=== PATIENT | female | born 1995 | race African-American/Black ===

== ENCOUNTER 2023-06-17 08:00 | Outpatient (CLI) | payer BC ==
[2023-06-17 19:18] LABS: BILIRUBIN,URINE NEGATIVE (NEGATIVE); GLUCOSE, URINE (UA) NEGATIVE (NEGATIVE); KETONES,URINE (UA) NEGATIVE (NEGATIVE); LEUKOCYTE ESTERASE, URINE NEGATIVE (NEGATIVE); NITRITE,URINE NEGATIVE (NEGATIVE); OCCULT BLOOD,URINE NEGATIVE (NEGATIVE); PROTEIN,URINE NEGATIVE (NEGATIVE); UROBILINOGEN,URINE 0.2 (NORMAL) E.U./dL (NORMAL)
[2023-06-17 19:27] LABS: CLARITY,URINE CLEAR (CLEAR)
[2023-06-17 19:42] LABS: BACTERIA,URINE None Seen /HPF (None Seen); RBC,URINE 0-5 /HPF (0-5); SQUAMOUS EPITHELIAL CELL,UR FEW Squamous (<= Few); WBC,URINE 0-3 /HPF (0-5)
== END 2023-06-17 23:59 | disposition home or self-care (01) ==
LOC: LAB.WC 08:00
PROVIDERS: ATTEND Obstetrics & Gynecology
DX: Z34.90 Encounter for supervision of normal pregnancy, unspecified, unspecified trimester (principal)
CPT/HCPCS: 81001; 87086

== ENCOUNTER 2023-07-03 07:11 | Outpatient (CLI) | payer BC ==
--- NOTE | 2023-07-03 14:01 | Ultrasound Report ---
PROCEDURE: OB First Trimester INDICATIONS: POSITIVE TEST OUTSIDE/PRIOR DATING DATA: Last menstrual period (LMP): 05/06/2023. LMP-based estimated date of delivery (RENNY): 02/10/2024. First dating scan (date and location): 07/03/2023. Estimated date of delivery (RENNY) from first dating scan: 02/08/2024. TECHNIQUE: Real-time scanning was performed of the fetus and maternal pelvic organs, with image documentation. COMPARISON: None FINDINGS: Intrauterine gestational sac present. Embryo: [place]ajo-rump length measures 2.01 cm corresponding with 8 week 4 day gestation Heart rate: 160 bpm. Other: No perigestational fluid collection. Measurement variability in dating: +/- 4 weeks by LMP, +/- 7 days by mean sac diameter (use before 6 weeks gestation if crown-rump length not able to be measured), +/- 5 days by crown-rump length (6-12 weeks gestation). Maternal organs: Ovaries show a left corpus luteum cyst IMPRESSION: Single live intrauterine corresponds with 8 week 4 day gestation Reviewed by: Brannon Solomon MD on 07/03/2023 12:59 PM AKST Approved by: Brannon Solomon MD on 07/03/2023 12:59 PM AKST Station ID: [id number]
== END 2023-07-03 07:12 | disposition home or self-care (01) ==
LOC: DI 07:11
PROVIDERS: ATTEND Obstetrics & Gynecology
DX: Z34.91 Encounter for supervision of normal pregnancy, unspecified, first trimester (principal)

== ENCOUNTER 2023-07-14 16:59 | Emergency (ER) | payer BC ==
--- NOTE | 2023-07-14 17:15 | ED Physician Documentation ---
PD HPI NVD - Stated complaint Stated Complaint: PREG/PASTOR/VOMIT/SORE THROAT - Chief complaint Chief Complaint: Abd Pain - History obtained from History obtained from: Patient - Additonal information Additional information: This is a 28-year-old female who is approximately 30 weeks who presents with nausea and vomiting that has been present throughout her but over the last several days she really has not been able to tolerate much of any p.o. intake. She also has developed cough, nasal congestion mild sore throat and body aches with particularly strong bilateral leg cramps. She has also had a "Little bit" of fever.She was exposed to her and her toddler daughter who have had URI symptoms in the last week or so as well. No other known sick contacts. She is not having any chest pain no difficulty breathing, no abdominal pain, no dysuria urgency or frequency, no vaginal bleeding. She has had a first trimester OB visit and in fact has follow-up with her OB tomorrow. She does recall that during her last she had issues with nausea and vomiting the first trimester though never required any medication. 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 - Present Medications Home Medications: Ambulatory Orders Medication Instructions Recorded Confirmed Nirmatrelvir/Ritonavir [Paxlovid] 1 kit PO BID #1 kit 07/14/23 Ondansetron Odt [Zofran] 4 mg TL Q6H PRN #10 tablet 07/14/23 Pnv No.95/Ferrous Fum/Folic AC 1 each PO DAILY 07/14/23 07/14/23 [ Tablet] - Allergies Allergies/Adverse Reactions: Allergies Allergy/AdvReac Type Severity Reaction Status Date / Time No Known Drug Allergies Allergy Verified 07/14/23 17:03 - Social History Does the pt smoke?: No Smoking Status: Never smoker Does the pt drink ETOH?: No Does the pt have substance abuse?: No - Immunizations Immunizations are current?: Yes PD ED PE NORMAL - Vitals Vital signs reviewed: Yes - General General: Alert and oriented X 3, No acute distress, Well developed/nourished - HEENT HEENT: Atraumatic, Moist mucous membranes, Pharynx benign - Neck Neck: Supple, no meningeal sign, No adenopathy - Cardiac Cardiac: RRR, No murmur - Respiratory Respiratory: No respiratory distress, Clear bilaterally - Abdomen Abdomen: Normal bowel sounds, Soft, Non tender, Non distended - Derm Derm: Normal color, Warm and dry, No rash Results - Vitals Vitals: Vital Signs - 24 hr 07/14/23 07/14/23 17:04 18:53 Temperature 37.2 C 36.4 C L Heart Rate 105 H 99 Respiratory 18 16 Rate Blood Pressure 123/63 115/70 O2 Saturation 98 100 Oxygen O2 Source Room air - Labs Labs: Laboratory Tests 07/14/23 07/14/23 07/14/23 17:21 17:21 17:40 WBC 8.5 RBC 4.41 Hgb 12.5 Hct 38.0 MCV 86.2 MCH 28.3 MCHC 32.9 RDW 12.0 Plt Count 189 MPV 10.7 Neut # (Auto) 7.8 H Lymph # (Auto) 0.2 L [place] # (Auto) 0.4 Eos # (Auto) 0.0 Baso # (Auto) 0.0 Absolute Nucleated RBC 0.00 Nucleated RBC % 0.0 Sodium 132 L Potassium 3.5 Chloride 101 Carbon Dioxide 22 Anion Gap 9.0 BUN 7 Creatinine 0.5 L Estimated GFR (MDRD) 176 Glucose 96 Calcium 9.4 Total Bilirubin 0.3 AST 11 ALT 12 Alkaline Phosphatase 46 Total Protein 6.8 Albumin 4.3 Globulin 2.5 Albumin/Globulin Ratio 1.7 Lipase < 10 L Urine Color Urine Clarity Urine pH Ur Specific [place] Urine Protein Urine Glucose (UA) Urine Ketones Urine Occult Blood Urine Nitrite Urine Bilirubin Urine Urobilinogen Ur Leukocyte Esterase Ur Microscopic Review Urine Culture Comments Nasal Adenovirus (PCR) NOT DETECTED Nasal B. parapertussis DNA (PCR) NOT DETECTED Nasal Coronavir 229E PCR NOT DETECTED Nasal Coronavir HKU1 PCR NOT DETECTED Nasal Coronavir NL63 PCR NOT DETECTED Nasal Coronavir OC43 PCR NOT DETECTED Nasal Enterovir/Rhinovir PCR NOT DETECTED Nasal Influenza B PCR NOT DETECTED Nasal Influenza A PCR NOT DETECTED Nasal Parainfluen 1 PCR NOT DETECTED Nasal Parainfluen 2 PCR NOT DETECTED Nasal Parainfluen 3 PCR NOT DETECTED Nasal Parainfluen 4 PCR NOT DETECTED Nasal RSV (PCR) NOT DETECTED Nasal B.pertussis DNA PCR NOT DETECTED Nasal C.pneumoniae (PCR) NOT DETECTED Ivan Human Metapneumo PCR NOT DETECTED Nasal M.pneumoniae (PCR) NOT DETECTED Nasal SARS-CoV-2 (PCR) DETECTED A 07/14/23 17:55 WBC RBC Hgb Hct MCV MCH MCHC RDW Plt Count MPV Neut # (Auto) Lymph # (Auto) [place] # (Auto) Eos # (Auto) Baso # (Auto) Absolute Nucleated RBC Nucleated RBC % Sodium Potassium Chloride Carbon Dioxide Anion Gap BUN Creatinine Estimated GFR (MDRD) Glucose Calcium Total Bilirubin AST ALT Alkaline Phosphatase Total Protein Albumin Globulin Albumin/Globulin Ratio Lipase Urine Color YELLOW Urine Clarity CLEAR Urine pH 6.0 Ur Specific [place] 1.015 Urine Protein NEGATIVE Urine Glucose (UA) NEGATIVE Urine Ketones NEGATIVE Urine Occult Blood NEGATIVE Urine Nitrite NEGATIVE Urine Bilirubin NEGATIVE Urine Urobilinogen 0.2 (NORMAL) Ur Leukocyte Esterase NEGATIVE Ur Microscopic Review NOT INDICATED Urine Culture Comments NOT INDICATED Nasal Adenovirus (PCR) Nasal B. parapertussis DNA (PCR) Nasal Coronavir 229E PCR Nasal Coronavir HKU1 PCR Nasal Coronavir NL63 PCR Nasal Coronavir OC43 PCR Nasal Enterovir/Rhinovir PCR Nasal Influenza B PCR Nasal Influenza A PCR Nasal Parainfluen 1 PCR Nasal Parainfluen 2 PCR Nasal Parainfluen 3 PCR Nasal Parainfluen 4 PCR Nasal RSV (PCR) Nasal B.pertussis DNA PCR Nasal C.pneumoniae (PCR) Ivan Human Metapneumo PCR Nasal M.pneumoniae (PCR) Nasal SARS-CoV-2 (PCR) PD Medical Decision Making - ED course Complexity details: reviewed results, re-evaluated patient, considered differential, d/w patient, d/w family ED course: 28-year-old female who is approximately 11 weeks presented with nausea and vomiting as well as cough and nasal congestion. She has been exposed to her and other daughter who have had similar URI symptoms. Patient is well- appearing here on physical exam, nontoxic afebrile, mildly tachycardic but her physical exam is otherwise unremarkable. We placed an IV and the patient received 1 L of normal saline as well as 4 mg of IV Zofran labs were obtained which were reassuring and stable CBC CMP including electrolytes, urinalysis negative for signs of infection. Her viral panel does show positive COVID and this is likely a cause of her symptoms in addition to likely nausea and vomiting of as these symptoms started earlier. I discussed treatment with patient, paxlovid is considered safe during and I did offer this to patient. She actually has a OB appointment tomorrow so advised her to discuss this with OB though she may need to do a phone appointment rather than in person based on clinic rules. I have prescribed a paxlovid and patient will discuss with her OB tomorrow about whether or not she wants to take this. In the meantime I discussed supportive measures, medication that she can take for symptom relief during , to get plenty of rest and take oral fluids. The patient tolerated p.o. here and is feeling better after fluid and Zofran therefore I do believe she is safe for discharge home at this time. Return precautions reviewed any new or worsening symptoms. Departure - Departure Disposition: 01 Home, Self Care Clinical Impression: Nausea and vomiting during prior to 22 weeks gestation, COVID-19 affecting in first trimester Upper respiratory infection Qualifiers: URI type: unspecified viral URI Qualified Code(s): J06.9 - Acute upper respiratory infection, unspecified Condition: Good Instructions: ED Upper Resp Infec No Abx Tx, ED Preg Morning Sickness Prescriptions: Nirmatrelvir/Ritonavir [Paxlovid] 1 kit PO BID #1 kit Ondansetron Odt [Zofran] 4 mg TL Q6H PRN #10 tablet PRN Reason: Nausea / Vomiting Comments: You have a viral URI in addition to nausea/vomiting of . I am prescribed a nausea medication to help with your symptoms. You may also consider over the counter doxylamine and pyridoxine which can help with nausea/vomiting as well. Typically this improves as you enter the 2nd trimester. Keep your follow up with OB tomorrow and they can discuss with you further. For your URI, it is safe to take acetaminophen, commonly sold as Tylenol. Ibuprofen is generally not given during because it can be harmful in the 3rd trimester. Benadryl is ok for congestion/allergies and saline nasal spray is okay. You can drink warm tea w/ honey and utilize humidification to help with sore throats and nasal congestion. The viral lab test will take another 1-2 hours to result. You can call for results or check in on your chart to see the results. These viruses are all typically managed supportively and antibiotics or other medications are not necessary. Forms: PCP List Discharge Date/Time: 07/14/23 18:56
[2023-07-14] MEDS ORDERED: SODIUM CHLORIDE 0.9% 1,000 ML IV STA (17:21)
[2023-07-14] MEDS ORDERED: ONDANSETRON 4 MG/2 ML VIAL IVP STA (17:21)
[2023-07-14 17:27] LABS: BASOPHILS % (AUTO) 0.2 %; HGB - HEMOGLOBIN 12.5 g/dL (12.0-16.0); LYMPHOCYTES # (AUTO) 0.2 10^3/uL (1.5-3.5); LYMPHOCYTES % (AUTO) 2.4 %; MEAN CORPUSCULAR HEMOGLOBIN 28.3 pg (27.0-31.0); MEAN CORPUSCULAR HGB CONC 32.9 g/dL (32.0-36.0); MEAN CORPUSCULAR VOLUME 86.2 fL (81.0-99.0); MEAN PLATELET VOLUME 10.7 fL (7.9-10.8); MONOCYTES # (AUTO) 0.4 10^3/uL (0.0-1.0); MONOCYTES % (AUTO) 5.1 %; NEUTROPHILS # (AUTO) 7.8 10^3/uL (1.5-6.6); NEUTROPHILS % (AUTO) 92.1 %; PLT - PLATELET COUNT 189 10^3/uL (130-450); RED BLOOD COUNT 4.41 10^6/uL (4.20-5.40); WHITE BLOOD COUNT 8.5 x10^3/uL (4.8-10.8)
[2023-07-14 17:49] LABS: ALBUMIN 4.3 g/dL (3.2-5.5); ALBUMIN/GLOBULIN RATIO 1.7 (1.0-2.2); ALKALINE PHOSPHATASE 46 IU/L (42-121); ALT ALANINE AMINOTRANSFERASE 12 IU/L (10-60); AST ASPARTATE AMINOTRANSFERASE 11 IU/L (10-42); BILIRUBIN,TOTAL 0.3 mg/dL (0.2-1.0); BUN - BLOOD UREA NITROGEN 7 mg/dL (6-20); CALCIUM 9.4 mg/dL (8.5-10.3); CARBON DIOXIDE - CO2 22 mmol/L (21-32); CHLORIDE 101 mmol/L (101-111); CREATININE 0.5 mg/dL (0.6-1.3); GFR - MDRD 176 (>89); GLUCOSE 96 mg/dL (74-104); POTASSIUM 3.5 mmol/L (3.5-4.5); SODIUM 132 mmol/L (135-145); TOTAL PROTEIN 6.8 g/dL (6.4-8.9)
[2023-07-14 17:51] LABS: LIPASE < 10 U/L (11-82)
[2023-07-14 18:08] LABS: BILIRUBIN,URINE NEGATIVE (NEGATIVE); CLARITY,URINE CLEAR (CLEAR); GLUCOSE, URINE (UA) NEGATIVE (NEGATIVE); KETONES,URINE (UA) NEGATIVE (NEGATIVE); LEUKOCYTE ESTERASE, URINE NEGATIVE (NEGATIVE); NITRITE,URINE NEGATIVE (NEGATIVE); OCCULT BLOOD,URINE NEGATIVE (NEGATIVE); PROTEIN,URINE NEGATIVE (NEGATIVE); UROBILINOGEN,URINE 0.2 (NORMAL) E.U./dL (NORMAL)
[2023-07-14] MEDS ORDERED: ONDANSETRON ODT 4 MG Prepack 2 TL PRN (18:17)
[2023-07-14 18:52] LABS: B. PARAPERTUSSIS- RESP PCR PAN NOT DETECTED; B. PERTUSSIS- RESP PCR PANEL NOT DETECTED; C. PNEUMONIAE- RESP PCR PANEL NOT DETECTED; CORONAVIRUS 229E-RESP PCR NOT DETECTED; CORONAVIRUS HKU1-RESP PCR NOT DETECTED; CORONAVIRUS NL63-RESP PCR NOT DETECTED; CORONAVIRUS OC43-RESP PCR NOT DETECTED; HUMAN METAPNEUMOVIRUS NOT DETECTED; INFLUENZA A- RESP PCR PANEL NOT DETECTED; INFLUENZA B - RESP PCR PANEL NOT DETECTED; M. PNEUMONIAE- RESP PCR PANEL NOT DETECTED; PARAINFLUENZA VIRUS 1 NOT DETECTED; PARAINFLUENZA VIRUS 2 NOT DETECTED; PARAINFLUENZA VIRUS 3 NOT DETECTED; PARAINFLUENZA VIRUS 4 NOT DETECTED; RHINOVIRUS/ENTEROVIRUS NOT DETECTED; RSV- RESP PCR PANEL NOT DETECTED
[2023-07-14 18:53] LABS: SARS-CoV-2 -RESP PCR PANEL DETECTED
[2023-07-14 19:00] VITALS: BP 115/70; O2SAT 100
== END 2023-07-14 18:56 | disposition home or self-care (01) ==
LOC: ED 16:59
DX: O21.9 Vomiting of pregnancy, unspecified (principal); O98.511 Other viral diseases complicating pregnancy, first trimester; U07.1 COVID-19; O99.511 Diseases of the respiratory system complicating pregnancy, first trimester; J98.8 Other specified respiratory disorders; Z3A.11 11 weeks gestation of pregnancy
CPT/HCPCS: 36415; 80053; 81001; 81003; 83690; 85025; 87086; 87633; 96374; 99284